=== PATIENT | male | born 1960 | race Caucasian/White ===

== ENCOUNTER → 2017-11-25 | Outpatient (CLI) | payer OTHER ==
[~2017-11-25] MED LIST: AMITRIPTYLINE H10 M3 PO; MEDROLDOSEPACK PO; MOBIC15 MG PO
--- NOTE | 2017-12-22 10:00 | PAINCON ---
[address] [address] PAIN MANAGEMENT CONSULTATION Name: JOI GOFF Room: [facility] CHRIS Marcio#: [id number] Admission: 11/25/17 Attend Phys: Joie Graham MD Discharge: Date of : 58 Report #: [id number] THIS REPORT FOR: //name// CC: Juve Graham DATE OF SERVICE: 11/25/2017 CHIEF COMPLAINT: Pain in the right back area. HISTORY OF PRESENT ILLNESS: The patient is a 57-year-old gentleman who has been referred to the pain clinic for evaluation of back pain. He denies any trauma history. He has noticed that the pain continues to be problematic in the right flank area. It has been on and off for about the last year. Over the last 2-3 weeks, he has noted worsening of pain. Particularly, the pain can be exacerbated by mowing his lawn. He feels that the jostling on the lawnmower can worsen his pain. He has been taking Advil with no significant relief. Continues to perform activities of daily living, but continues to have constant pain. He rates his pain as a 5/10 on most days. Denies any trauma. Denies any history of rash in the affected area. He describes it as steady and aching when it is present. He has had some pain that radiated into the right lateral abdominal area, more toward the midline in the past with after bending over. ALLERGIES: No known drug allergies. CURRENT MEDICATIONS: Advil p.r.n. PAST MEDICAL HISTORY: Generally good health. PAST SURGICAL HISTORY: Meniscus tear on the knee in 2003. SOCIAL HISTORY: He is employed. He is working at this juncture. REVIEW OF SYSTEMS: Generally good health, abdominal pain, awakens to urinate, weakness of muscles and joints, muscle pain, cramps, and back pain. LABORATORY DATA: 1. CT of the abdomen dated 10/30/2017 reveals diffuse fatty infiltrates of the liver with uniform density and enhancement. 2. Circumferentially calcified nodular region in the lateral right renal mid pole without hydronephrosis, hydroureter or nephrolithiasis. 3. ____ CT abdomen. PAIN CLINIC ASSESSMENT: 1. The patient has not been treated for osteoarthritis or rheumatoid arthritis. 2. Height 5 feet 11 inches, weight 190 pounds, [place] [address] PAIN MANAGEMENT CONSULTATION Name: SHELLJOI W Room: [facility]#: [id number] Admission: 11/25/17 Attend Phys: Joie Graham MD Discharge: Date of : 58 Report #: [id number] 3. VITAL SIGNS: Blood pressure 140/88, heart rate 78, respiratory rate 16, room air saturation 96%, temperature 98.0. 4. Pain intensity 4/10. 5. Fall risk. The patient has not fallen in the last 3 months. 6. Blood thinner. The patient is on a blood thinning medication. 7. Hypertension. The patient has not been treated for hypertension. 8. Opioid therapy. The patient has not been treated with opioids. 9. Risk assessment tool, low for use of opioid medication. 10. Functional assessment tool 30/09. 11. Recreational drug use. The patient denies use of recreational drugs. 12. Tobacco: The patient denies use of tobacco. 13. Alcohol. The patient drinks alcoholic beverages weekly on the weekend on occasion. PHYSICAL EXAMINATION: GENERAL: The patient is a well-developed, well-nourished white male. Appears his stated age. He is alert and oriented x 3. His affect is appropriate. Speech is fluent. HEENT: Normocephalic, atraumatic. Extraocular eye muscles are intact. Sclerae nonicteric. Mucous membranes are moist. NECK: Without JVD, bruit, or adenopathy. Good range of motion. HEART: Regular rate. S1, S2. LUNGS: Clear to auscultation without rhonchi or rales. ABDOMEN: Nontender. EXTREMITIES: Upper extremity muscle strength is judged to be 5/5 for the major muscle groups in the upper extremity with +2 biceps reflexes bilaterally with muscle symmetry. Lower extremity muscle strength is judged to be 5/5. Deep tendon reflexes are +2 at the knees and trace at the ankles bilaterally. The patient is without sensory deficits. Bridger's sign is negative. Forward bending to 90 degrees is not problematic. Lumbar extension is not problematic. The patient notes that lifting his arms over his head cause a pulling sensation in the right lower quadrant area. Left lateral bending causes some increased discomfort in the right area as well. Sensation in the lower extremities is judged to be within normal limits without sensory change. The patient has pain and discomfort in the right chest wall area. Palpation between the T10 and T11 rib causes a reproduction of the patient's pain as one walks in between the ribs towards the spinal area. Notes some pain and discomfort in the T11-T12 area as well. IMPRESSION: Intercostal neuritis. RECOMMENDATIONS: We discussed treatment options with the patient. Risks and benefits of an intercostal block were discussed. Possibility of a thoracic epidural steroid injection were also alluded to. At this juncture, we will try a conservative approach. The patient will try amitriptyline 10 mg at bedtime. He will also try a Medrol Dosepak and Mobic for the next week. If his pain [facility] [address] [place] [address] PAIN MANAGEMENT CONSULTATION Name: JOI GOFF Room: [facility].#: [id number] Admission: 11/25/17 Attend Phys: Joie Graham MD Discharge: Date of : 58 Report #: [id number] continues to be problematic, we will consider the possibility of an injection. We would like to thank you for letting us participate in his care. We hope he continues to improve. <ELECTRONICALLY SIGNED> By: Joie Graham MD 12/22/17 [id number]. Shahab Graham MD /nt
== END ==
LOC: M.PC 05:51
DX: M79.2 Neuralgia and neuritis, unspecified (principal); M54.5 Low back pain